=== PATIENT | male | born 1970 | race African-American/Black ===

== ENCOUNTER 2021-02-02 12:17 | Outpatient (REF) | payer OTHER, SELFPAY | END 2021-02-02 12:18 | disposition home or self-care (01) | LOC: HO.LAB 12:17 | PROVIDERS: Visit Provider Internal Medicine | DX: Z20.822 Contact with and (suspected) exposure to COVID-19 (principal) | CPT/HCPCS: C9803; U0003; U0005 ==

== ENCOUNTER 2021-02-21 11:27 | Outpatient (REF) | payer OTHER, SELFPAY ==
[2021-02-21 11:46] LABS: COVID-19 Test Negative (Negative)
== END 2021-02-21 11:28 | disposition home or self-care (01) ==
LOC: HO.LAB 11:27
PROVIDERS: Visit Provider Internal Medicine
DX: Z20.822 Contact with and (suspected) exposure to COVID-19 (principal)
CPT/HCPCS: 36415; 87635; C9803